=== PATIENT | female | born 1955 | race Caucasian/White ===

== ENCOUNTER 2018-01-04 09:47 | Outpatient (CLI) | payer OTHER | END 2018-01-04 09:48 | disposition home or self-care (01) | LOC: BICMAMMO 09:47 | PROVIDERS: ATTEND Family Medicine | DX: Z12.31 Encounter for screening mammogram for malignant neoplasm of breast (principal) | CPT/HCPCS: 77063; 77067 ==

== ENCOUNTER 2018-01-26 12:29 | Emergency (ER) | payer OTHER ==
[2018-01-26] MEDS ORDERED: Ibuprofen 800 MG TAB ONE (13:15)
--- NOTE | 2018-01-26 13:51 | RAD ---
LEFT SHOULDER THREE VIEWS: History: Pain. Comparison: None. FINDINGS: The left shoulder is intact. No acute fracture or malalignment. IMPRESSION: No acute fracture or malalignment. POS: [facility]
--- NOTE | 2018-01-26 13:51 | RAD ---
LEFT ELBOW FOUR VIEWS: History: Injury. Pain. Trauma. Comparison: None. FINDINGS: No acute displaced fracture or malalignment. No significant joint effusion. IMPRESSION: No acute displaced fracture or malalignment. POS: [facility]
--- NOTE | 2018-01-26 15:01 | CT ---
NONCONTRAST CT LEFT SHOULDER: Date: 01-26-18 History: Left shoulder pain. Patient fell just prior to arrival with abrasions to left elbow and left shoulder pain. FINDINGS: There is no evidence of a fracture or dislocation involving the left shoulder. The coracoclavicular a nd acromioclavicular distances are within normal limits. 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 Visualized left lung is clear aside from minimal atelectasis. No joint effusion is appreciated on thi s nonenhanced CT scan exam. IMPRESSION: No acute osseous abnormality involving the left shoulder. POS: [facility]
== END 2018-01-26 15:25 | disposition home or self-care (01) ==
LOC: ERS 12:29
DX: S40.012A Contusion of left shoulder, initial encounter (principal); S80.212A Abrasion, left knee, initial encounter; K58.9 Irritable bowel syndrome, unspecified; F32.9 Major depressive disorder, single episode, unspecified; G43.909 Migraine, unspecified, not intractable, without status migrainosus; Z79.899 Other long term (current) drug therapy; W18.30XA Fall on same level, unspecified, initial encounter

== ENCOUNTER 2018-12-05 14:31 | Outpatient (CLI) | payer OTHER ==
--- NOTE | 2018-12-05 15:16 | MMO ---
Bilateral MAMMO Bilat Screen [facility]. CLINICAL HISTORY: Patient is 63 years old and is seen for screening. The patient has no family history of breast cancer. The patient has no personal history of cancer. VIEWS: The views performed were: bilateral craniocaudal with tomosynthesis and bilateral mediolateral oblique with tomosynthesis. FILMS COMPARED: The present examination has been compared to a prior imaging study performed at [facility] on 01/04/2018. MAMMOGRAM FINDINGS: There are scattered fibroglandular densities. There are stable benign appearing calcifications seen in both breasts. There are also vascular calcifications. There are no suspicious masses, suspicious calcifications, or new areas of architectural distortion. IMPRESSION: THERE IS NO MAMMOGRAPHIC EVIDENCE OF MALIGNANCY. A ROUTINE FOLLOW-UP MAMMOGRAM IN 1 YEAR IS RECOMMENDED. THE RESULTS OF THIS EXAM WERE SENT TO THE PATIENT. ACR BI-RADS Category 2 - Benign finding MAMMOGRAPHY NOTE: 1. A negative mammogram report should not delay a biopsy if a dominant of clinically suspicious mass is present. 2. Approximately 10% to 15% of breast cancers are not detected by mammography. 3. Adenosis and dense breasts may obscure an underlying neoplasm.
== END 2018-12-05 14:32 | disposition home or self-care (01) ==
LOC: BICMAMMO 14:31
PROVIDERS: ATTEND Family Medicine
DX: Z12.31 Encounter for screening mammogram for malignant neoplasm of breast (principal)
CPT/HCPCS: 77063; 77067

== ENCOUNTER 2020-11-27 10:08 | Outpatient (CLI) | payer OTHER | END 2020-11-27 10:09 | disposition home or self-care (01) | LOC: BICMRI 10:08 | PROVIDERS: ATTEND Family Medicine | DX: Z12.31 Encounter for screening mammogram for malignant neoplasm of breast (principal); M47.812 Spondylosis without myelopathy or radiculopathy, cervical region | CPT/HCPCS: 72141; 77063; 77067 ==

== ENCOUNTER 2021-01-06 12:39 | Outpatient (CLI) | payer OTHER | END 2021-01-06 12:40 | disposition home or self-care (01) | LOC: BICULT 12:39 | PROVIDERS: ATTEND Family Medicine | DX: M79.604 Pain in right leg (principal); I82.431 Acute embolism and thrombosis of right popliteal vein; I82.441 Acute embolism and thrombosis of right tibial vein ==

== ENCOUNTER 2021-01-06 13:15 | Emergency (ER) | payer OTHER ==
[2021-01-06 15:46] LABS: #Basophils 0.1 thou/uL (0.0-0.2); #Eosinphils 0.2 thou/uL (0.0-0.7); #Monocytes 0.5 thou/uL (0.11-0.59); #Neutrophils 2.3 thou/uL (1.40-6.50); %Basophils 1.1 % (0.0-1.0); %Eosinophils 4.1 % (0.0-10.0); %Lymphocytes 39.7 % (21.0-51.0); %Neutrophils 45.1 % (42.0-75.0); Hemoglobin 12.9 g/dL (12.0-16.0); Mean Corpuscular HGB CONC 34.4 g/dL (32.0-36.0); Mean Corpuscular Volume 95.9 fL (78.0-98.0); Mean Platelet Volume 8.7 fL (7.4-10.4); Platelet Count 188 thou/uL (130-400); RBC Distribution Width 12.3 % (11.5-14.5); Red Blood Cell (RBC) Count 3.92 mill/uL (4.20-5.40); White Blood Cell (WBC) Count 5.1 thou/uL (4.8-10.8)
[2021-01-06 15:58] LABS: INR-International Normal Ratio 0.9; Prothrombin Time 12.8 sec (12.0-14.7)
[2021-01-06 15:59] LABS: PTT 26.5 sec (22.9-36.1)
[2021-01-06 16:11] LABS: ALT (SGPT) 18 U/L (8-55); AST (SGOT) 18 U/L (5-34); Albumin 3.7 g/dL (3.4-4.8); Alkaline Phosphatase 78 U/L (40-110); Anion Gap 14 mmol/L (10-20); BUN (Urea Nitrogen) 20 mg/dL (9.8-20.1); Bilirubin, Total 0.3 mg/dL (0.2-1.2); Calc. Creatinine Clearance 0 mL/min (70-130); Carbon Dioxide 23 mmol/L (23-31); Chloride 105 mmol/L (98-107); Globulin 2.7 g/dL (2.4-3.5); Glucose 100 mg/dL (80-115); Potassium 3.8 mmol/L (3.5-5.1); Protein, Total 6.4 g/dL (5.8-8.1); Sodium 138 mmol/L (136-145)
[2021-01-07 16:21] LABS: Factor VIII Test 222.5 % ACTIVE (56-157)
[2021-01-07 16:27] LABS: Protein C Activity 108 % (78-152)
[2021-01-08 12:51] LABS: Cardiolipin IgA Ab 2.7 APL-U/mL (<14 Negative); Cardiolipin IgM Ab Less than 0.8 MPL-U/mL (<10 Negative); EliA APS New Method **** NEW METHOD ****
== END 2021-01-06 15:17 | disposition home or self-care (01) ==
LOC: ERS 13:15
DX: I82.401 Acute embolism and thrombosis of unspecified deep veins of right lower extremity (principal); K21.9 Gastro-esophageal reflux disease without esophagitis; K58.9 Irritable bowel syndrome, unspecified; Z79.899 Other long term (current) drug therapy
CPT/HCPCS: 36415; 80053; 83090; 85025; 85240; 85300; 85303; 85305; 85307; 85379; 85598; 85610; 85730; 86147; 99283

== ENCOUNTER 2021-04-01 10:06 | Outpatient (CLI) | payer OTHER | END 2021-04-01 10:07 | disposition home or self-care (01) | LOC: BICULT 10:06 | PROVIDERS: ATTEND Family Medicine | DX: I82.491 Acute embolism and thrombosis of other specified deep vein of right lower extremity (principal) ==

== ENCOUNTER 2022-06-07 12:10 | Outpatient (CLI) | payer MEDICARE | END 2022-06-07 12:11 | disposition home or self-care (01) | LOC: BICMAMMO 12:10 | PROVIDERS: ATTEND Family Medicine | DX: Z12.31 Encounter for screening mammogram for malignant neoplasm of breast (principal) | CPT/HCPCS: 77063; 77067 ==

== ENCOUNTER 2023-01-24 14:19 | Emergency (ER) | payer MEDICARE ==
[2023-01-24] MEDS ORDERED: Metoclopramide HCl 10 MG/2 ML VIAL ONE (14:46)
[2023-01-24] MEDS ORDERED: Ketorolac Tromethamine 30 MG/ML VIAL ONE (14:46)
[2023-01-24 14:48] LABS: #Basophils 0.1 thou/uL (0.0-0.2); #Eosinphils 0.2 thou/uL (0.0-0.7); #Monocytes 0.6 thou/uL (0.11-0.59); #Neutrophils 2.8 thou/uL (1.40-6.50); %Lymphocytes 41.8 % (21.0-51.0); Hemoglobin 13.9 g/dL (12.0-16.0); Mean Corpuscular HGB CONC 33.5 g/dL (32.0-36.0); Mean Corpuscular Hemoglobin 31.3 pg (27.0-31.0); Mean Corpuscular Volume 93.5 fl (78.0-98.0); Mean Platelet Volume 11.6 fL (7.4-10.4); Platelet Count 181 10x3/uL (130-400); RBC Distribution Width 12.5 % (11.5-14.5); Red Blood Cell (RBC) Count 4.44 mill/uL (4.20-5.40); White Blood Cell (WBC) Count 6.1 10x3/uL (4.8-10.8)
[2023-01-24 15:33] LABS: ALT (SGPT) 13 U/L (8-55); AST (SGOT) 18 U/L (5-34); Albumin 4.2 g/dL (3.4-4.8); Alkaline Phosphatase 87 U/L (40-110); Anion Gap 12 mmol/L (10-20); BUN (Urea Nitrogen) 21 mg/dL (9.8-20.1); Bilirubin, Total 0.3 mg/dL (0.2-1.2); CK (CPK) 138 U/L (29-168); Calc. Creatinine Clearance 0 mL/min (70-130); Calcium 9.7 mg/dL (7.8-10.44); Carbon Dioxide 26 mmol/L (23-31); Chloride 106 mmol/L (98-107); Estimated GFR 45; Globulin 2.6 g/dL (2.4-3.5); Glucose 89 mg/dL (80-115); Protein, Total 6.8 g/dL (5.8-8.1); Sodium 140 mmol/L (136-145)
[2023-01-24] MEDS ORDERED: Iopamidol-370 76% 500 ML MDV (1 ML CHARGE) ONE (17:23)
== END 2023-01-24 18:30 | disposition home or self-care (01) ==
LOC: ERS 14:19
DX: R07.9 Chest pain, unspecified (principal); K21.9 Gastro-esophageal reflux disease without esophagitis
CPT/HCPCS: 36415; 71045; 71275; 80053; 82550; 83880; 84443; 84484; 85025; 85379; 93005; 94760; 96374; 96375; J1885; J2765; Q9967

== ENCOUNTER 2025-02-06 15:16 | Outpatient (CLI) | payer MEDICARE | END 2025-02-06 15:17 | disposition home or self-care (01) | LOC: BICMRI 15:16 → SCSMRI 15:17 | PROVIDERS: ATTEND Family Medicine Sports Medicine | DX: M70.62 Trochanteric bursitis, left hip (principal); S72.035A Nondisplaced midcervical fracture of left femur, initial encounter for closed fracture; S72.092A Other fracture of head and neck of left femur, initial encounter for closed fracture ==

== ENCOUNTER 2025-05-22 14:05 | Outpatient (CLI) | payer MEDICARE | END 2025-05-22 14:06 | disposition home or self-care (01) | LOC: SCSMRI 14:05 | PROVIDERS: ATTEND Family Medicine Sports Medicine | DX: M17.11 Unilateral primary osteoarthritis, right knee (principal); M25.461 Effusion, right knee ==